=== PATIENT | male | born 1990 | race Caucasian/White ===

== ENCOUNTER 2016-07-11 16:57 | Emergency (ER) | payer OTHER ==
[2016-07-11 17:56] VITALS: BP 130/83
[2016-07-11] MEDS ORDERED: Albuterol 2.5 MG/3 ML NEB.SOL* (0.083%) INH ONE (18:18)
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
== END 2016-07-11 18:50 | disposition home or self-care (01) ==
LOC: UCEAST 16:57
DX: R05 Cough (principal); J98.01 Acute bronchospasm; R03.0 Elevated blood-pressure reading, without diagnosis of hypertension
CPT/HCPCS: 99212; G0463

== ENCOUNTER 2016-07-14 14:40 | Emergency (ER) | payer OTHER ==
[2016-07-14 16:22] VITALS: BP 130/87
[2016-07-14] MEDS ORDERED: Ibuprofen TAB* 600 MG PO ONE (16:44)
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
== END 2016-07-14 17:42 | disposition home or self-care (01) ==
LOC: UCEAST 14:40
DX: M62.830 Muscle spasm of back (principal); J32.9 Chronic sinusitis, unspecified; J45.990 Exercise induced bronchospasm
CPT/HCPCS: 70450; 72125; 99212; A9270-GY; G0463